=== PATIENT | male | born 1990 | race African-American/Black ===

== ENCOUNTER 2017-08-02 21:29 | Emergency (ER) | payer SELFPAY ==
[~2017-08-02] VITALS: Ht 180.3 cm; Wt 72.0 kg
[2017-08-03] MEDS ORDERED: KETOROLAC 30MG/ML VIAL IM ONE (03:30)
[2017-08-03] MEDS ORDERED: ONDANSETRON 4MG ODT PO ONE (03:30)
[2017-08-03 04:43] LABS: BASOPHILS % 0.4 % (0.0-2.0); EOSINOPHILS % 0.3 % (0.0-5.0); HEMATOCRIT. 42.9 % (42.0-52.0); HEMOGLOBIN. 14.7 g/dL (14.0-18.0); LYMPHOCYTES % 14.5 % (20.0-50.0); MEAN CORPUSCULAR HEMOGLOBIN 30.5 pg (28.0-32.0); MEAN CORPUSCULAR VOLUME 89.2 fL (80.0-94.0); MEAN PLATELET VOLUME 7.6 fl (7.4-10.4); MONOCYTES % 8.6 % (2.0-8.0); NEUTROPHILS % 76.2 % (40.0-76.0); PLATELET 192 x1000/uL (130-400); RED BLOOD CELL COUNT 4.81 mill/uL (4.7-6.1); RED CELL DISTRIBUTION WIDTH 13.2 % (11.6-14.6)
[2017-08-03] MEDS ORDERED: LIDOCAINE HCL 1% 20ML VIAL (Pyxis) INJ INFIL ONE (04:45)
[2017-08-03] MEDS ORDERED: CEFTRIAXONE SODIUM 250 MG/VIAL IM ONE (04:45)
[2017-08-03] MEDS ORDERED: AZITHROMYCIN 500 MG TABLET PO ONE (04:45)
[2017-08-03 04:47] LABS: INR 1.1; PROTHROMBIN TIME 11.5 sec (9.4-11.6)
[2017-08-03 04:55] LABS: CARBON DIOXIDE 31 mEq/L (21-32); CHLORIDE 103 mEq/L (98-107)
[2017-08-03 05:46] VITALS: BP 118/70
[2017-08-03 07:26] LABS: GLUCOSE URINE NEGATIVE (NEGATIVE); KETONES URINE 1+ (NEGATIVE); LEUKOCYTE ESTERASE URINE 1+ (NEGATIVE); NITRITE URINE NEGATIVE (NEGATIVE); OCCULT BLOOD URINE NEGATIVE (NEGATIVE); PROTEIN URINE NEGATIVE (NEGATIVE); UROBILINOGEN URINE 0.2 E.U./dL (0.2-1.0)
[2017-08-03 07:39] LABS: CLARITY URINE CLEAR (CLEAR); COLOR URINE YELLOW (YELLOW)
== END 2017-08-03 05:47 | disposition home or self-care (01) ==
LOC: ER 22:25
DX: N45.1 Epididymitis (principal); F12.10 Cannabis abuse, uncomplicated; Z98.890 Other specified postprocedural states
CPT/HCPCS: 36415; 76870; 80053; 81001; 85025; 85610; 93976; 96372; 99285; J0696; J1885; J3490; Q0162; Z7610